=== PATIENT | male | born 1985 | race Two or more races ===

== ENCOUNTER 2023-11-24 09:36 | Inpatient (IN) | payer OTHER ==
[2023-11-24 11:01] VITALS: BMI 26.4
[2023-11-24] MEDS ORDERED: cloNIDine HCL 0.1 MG TABLET PO PRN (12:12)
[2023-11-24] MEDS ORDERED: ONDANSETRON *ODT* 4 MG TABLET SL PRN (12:21)
[2023-11-24] MEDS ORDERED: NALOXONE HCL 0.4 MG/ML VIAL IM PRN (12:21)
[2023-11-24] MEDS ORDERED: guaiFENesin 600 MG TABLET.ER (FP) PO PRN (12:21)
[2023-11-24] MEDS ORDERED: NALOXONE HCL (KLOXXADO) 8 MG SPRAY NS PRN (12:21)
[2023-11-24] MEDS ORDERED: NICOTINE POLACRILEX 2 MG GUM BUC PRN (12:21)
[2023-11-24] MEDS ORDERED: ACETAMINOPHEN 325 MG TABLET (FP) PO PRN (12:21)
[2023-11-24] MEDS ORDERED: BENZONATATE 200 MG CAPSULE PO PRN (12:21)
[2023-11-24] MEDS ORDERED: DICYCLOMINE HCL 10 MG CAPSULE PO PRN (12:21)
[2023-11-24] MEDS ORDERED: BISMUTH SUBSALICYLATE 524 MG/30 ML PO PRN (12:21)
[2023-11-24] MEDS ORDERED: MAGNESIUM HYDROX 2400MG/30ML ORAL SUSPENSION 30 ML CUP PO PRN (12:21)
[2023-11-24] MEDS ORDERED: BENZOCAINE/MENTHOL (CHLORASEPTIC ) LOZENGE MM PRN (12:21)
[2023-11-24] MEDS ORDERED: POLYETHYLENE GLYCOL (HEALTHYLAX) 3350 17 GM PACKET PO PRN (12:21)
[2023-11-24] MEDS ORDERED: methaDONE HCL 10 MG TABLET (FOR DETOX USE ONLY) ONE (13:12)
[2023-11-24] MEDS: methaDONE HCL 10 MG TABLET (FOR DETOX USE ONLY) PO ONE (13:12)
[2023-11-24] MEDS ORDERED: ALBUTEROL SO4 HFA INHALER IH PRN (13:13)
[2023-11-24] MEDS: CEPHALEXIN MONOHYDRATE 500 MG CAPSULE (UD) PO SCH (13:20)
[2023-11-24] MEDS: diazePAM 5 MG TABLET PO PRN (13:36)
[2023-11-24] MEDS: diazePAM 5 MG TABLET PO SCH (17:36)
[2023-11-24] MEDS: SULFAMETHOXAZOLE/TRIMETHOPRIM 800MG/160MG D.S. TABLET PO SCH (22:29)
[2023-11-24] MEDS: MELATONIN 5 MG TABLETS PO SCH (22:29)
[2023-11-24] MEDS: THIAMINE HCL 100 MG TABLET (FP) PO SCH (22:29)
[2023-11-24] MEDS: IBUPROFEN 600 MG TABLET (FP) PO PRN (22:30)
[2023-11-25] MEDS: PRENATAL VITAMINS W/ FOLIC ACID TABLET (FP) PO SCH (09:43)
[2023-11-25] MEDS: METHOCARBAMOL 500 MG TABLET PO PRN (09:48)
[2023-11-25] MEDS: hydrOXYzine PAMOATE 25 MG CAPSULE (FP) PO PRN (09:48)
[2023-11-25 10:38] LABS: CHLORIDE 109 mmol/L (98-107); POTASSIUM 4.6 mmol/L (3.5-5.1); SODIUM 138 mmol/L (136-145)
[2023-11-25 10:39] LABS: HEMATOCRIT 40.9 % (35.4-49); HEMOGLOBIN 13.3 GM/dL (11.7-16.9); MCH 26.4 pg (25.7-33.7); MCHC 32.6 g/dl (32.0-35.9); MEAN CELL VOLUME 81.1 fl (80-96); MEAN PLT VOLUME 9.3 fl (7.5-11.1); PLATELET COUNT 281 10^3/uL (134-434); RBC 5.04 M/mm3 (4.00-5.60); RDW 13.8 % (11.9-15.9); WHITE BLOOD COUNT 8.7 K/mm3 (4.0-10.0)
[2023-11-25 10:45] LABS: ALBUMIN 3.4 g/dl (3.4-5.0); ANION GAP 5 mmol/L (4-13); CALCIUM 9.2 mg/dL (8.5-10.1); CO2 24 mmol/L (21-32); GLUCOSE,RANDOM 81 mg/dL (74-106)
[2023-11-25 10:46] LABS: BLOOD UREA NITROGEN 12.9 mg/dL (7-18)
[2023-11-25 10:48] LABS: SGPT/ALT 52 U/L (13-61)
[2023-11-25 10:49] LABS: CREATININE 0.8 mg/dL (0.55-1.3); SGOT/AST 41 U/L (15-37)
[2023-11-25 10:50] LABS: BILIRUBIN,TOTAL 0.2 mg/dL (0.2-1); TOT PROT 7.6 g/dl (6.4-8.2)
[2023-11-25 10:51] LABS: ALK PHOS 50 U/L (45-117)
[2023-11-25] MEDS: IBUPROFEN 400 MG TABLET (FP) PO PRN (22:05)
[2023-11-26] MEDS: diazePAM 5 MG TABLET PO SCH (05:46)
[2023-11-26] MEDS: methaDONE HCL 10 MG TABLET (FOR DETOX USE ONLY) PO ONE (09:31)
[2023-11-26] MEDS: LOPERAMIDE HCL 2 MG CAPSULE PO PRN (17:39)
[2023-11-27] MEDS: diazePAM 5 MG TABLET PO SCH (06:13)
[2023-11-27] MEDS: MAG HYDROX/AL HYDROX/SIMETH 30 ML UNIT-DOSE CUP PO PRN (09:55)
[2023-11-28] MEDS: diazePAM 5 MG TABLET PO ONE (05:50)
[2023-11-28] MEDS: methaDONE HCL 10 MG TABLET (FOR DETOX USE ONLY) PO ONE (09:45)
[2023-11-28] MEDS: BACITRACIN 0.9 GM PACKET TP SCH (11:59)
[2023-11-29 06:58] VITALS: TEMP 97.6
[2023-11-29 10:59] VITALS: BP 115/64; PULSE 98; RESP 17
== END 2023-11-29 11:40 | disposition home or self-care (01) | DRG 773 ==
LOC: YASAS 09:36 → Y6N 11:46
PROVIDERS: ADMIT Allergy & Immunology; ATTEND Surgery
PROC: HZ2ZZZZ Detoxification Services for Substance Abuse Treatment (ICD-10-PCS; principal; 2023-11-24)
DX: F11.23 Opioid dependence with withdrawal (principal); F13.230 Sedative, hypnotic or anxiolytic dependence with withdrawal, uncomplicated; F14.90 Cocaine use, unspecified, uncomplicated; F17.210 Nicotine dependence, cigarettes, uncomplicated; J45.20 Mild intermittent asthma, uncomplicated; Z87.2 Personal history of diseases of the skin and subcutaneous tissue
CPT/HCPCS: 36415; 80053; 80307; 85027; 86780